=== PATIENT | male | born 1965 | race Caucasian/White ===

== ENCOUNTER → 2023-07-15 19:03 | Outpatient (REF) | payer OTHER, SELFPAY | LOC: MRI 3T 19:03 | PROVIDERS: ATTENDING PHYSICIAN Physician Assistant | DX: M48.02 Spinal stenosis, cervical region (principal); M50.30 Other cervical disc degeneration, unspecified cervical region; M54.12 Radiculopathy, cervical region; R29.898 Other symptoms and signs involving the musculoskeletal system | CPT/HCPCS: 72141 ==

== ENCOUNTER → 2024-01-13 10:15 | Outpatient (REF) | payer OTHER, SELFPAY | LOC: RAD 10:15 | PROVIDERS: ATTENDING PHYSICIAN Physician Assistant | DX: F17.210 Nicotine dependence, cigarettes, uncomplicated (principal) | CPT/HCPCS: 71271 ==

== ENCOUNTER → 2025-02-11 14:29 | Outpatient (REF) | payer OTHER, SELFPAY | LOC: HWRAD 14:29 | PROVIDERS: ATTENDING PHYSICIAN Physician Assistant | DX: F17.210 Nicotine dependence, cigarettes, uncomplicated (principal); F17.200 Nicotine dependence, unspecified, uncomplicated | CPT/HCPCS: 71271 ==